=== PATIENT | male | born 1960 | race Caucasian/White ===

== ENCOUNTER 2020-05-26 07:10 | Outpatient (REF) | payer BC, SELFPAY ==
--- NOTE | 2020-05-26 07:25 | MR_ITS ---
EXAMINATION: MR CERVICAL SPINE WITHOUT CONTRAST CLINICAL INFORMATION: Hyperreflexia. COMPARISON: None available. TECHNIQUE: MRI of the cervical spine was performed using routine sequences without contrast. FINDINGS: The cervical vertebral bodies maintain normal heights. There is mild anterolisthesis of C4 on C5 and mild retrolisthesis of C5 on C6. Moderate to severe disc height loss is seen at C5-C6 with edematous endplate changes and prominent anterior osteophyte. There is cord compression at C5-C6 detailed below with intramedullary T2 hyperintensity seen extending from the C4-C5 disc level to the mid C6 level. The cord signal otherwise appears normal. The imaged portions of the intracranial contents appear normal. The extraspinal soft tissues appear normal. SPINAL LEVELS: C2-C3: No posterior disc abnormality or spinal canal stenosis. Severe right and moderate left facet arthropathy. Moderate right more than left neural foraminal stenosis. C3-C4: Mild disc bulging. No spinal canal stenosis. Severe bilateral facet arthropathy. Moderate to severe left and [id number] right neural foraminal stenosis. C4-C5: Disc osteophyte complex with shallow central protrusion. No spinal canal stenosis. Uncovertebral hypertrophy and severe right and moderate left facet arthropathy results in severe right and mild to moderate left neural foraminal stenosis. C5-C6: Broad-based disc osteophyte complex results in severe spinal canal stenosis with cord compression and diffuse intramedullary T2 hyperintensity. Bulging disc extends into the bilateral neural foramina and in combination with uncovertebral hypertrophy and moderate right and mild left facet arthropathy results in severe bilateral neural foraminal stenosis. C6-C7: Broad-based right paracentral/foraminal protrusion results in mild to moderate spinal canal stenosis with flattening of the right ventral cord and moderate right neural foraminal stenosis. Left uncovertebral hypertrophy mildly narrows the left neural foramen. C7-T1: No posterior disc abnormality. Mild facet arthropathy. No spinal canal or neural foraminal stenosis. MR/MR cervical spine wo con IMPRESSION: At C5-C6 there is disc height loss with edematous endplate changes in addition to multifactorial degenerative changes including broad-based disc osteophyte complex causing severe spinal canal stenosis with cord compression. Intramedullary T2 hyperintensity compatible with edema with possible underlying myelomalacia is seen centered at the C5-C6 level. No additional high-grade spinal canal stenosis is seen. Multilevel high-grade neural foraminal stenosis is seen as detailed above.
== END 2020-05-26 07:11 | disposition home or self-care (01) ==
LOC: HO.MRI 07:10
PROVIDERS: PCP Internal Medicine; Visit Provider Psychiatry & Neurology Neurology
DX: R29.2 Abnormal reflex (principal)
CPT/HCPCS: 72141

== ENCOUNTER 2021-07-19 11:12 | Emergency (ER) | payer BC, SELFPAY ==
[2021-07-19 11:41] VITALS: BP 143/77; PULSE 91; RESP 18; TEMP 36.9; O2SAT 99; BMI 35.5
[2021-07-19 14:10] VITALS: BP 179/94; PULSE 79; RESP 16; TEMP 35.3; O2SAT 99
--- NOTE | 2021-07-19 14:15 | ED.DENTAL ---
HPI - Dental/Oral General Chief complaint: Dental/Oral Stated complaint: tooth abscess Time Seen by Provider: 07/19/21 14:13 Source: patient Mode of arrival: ambulatory Limitations: no limitations History of Present Illness HPI Narrative: Complaining of left lower 3rd molar tooth pain, swelling of the left side of the face. Had dental workup and crown fixation on the 2 many years ago, patient otherwise declined any fever or chills, no difficulty breathing, not taking blood thinner, Complaint: tooth pain Related Data Previous Rx's Medication Instructions Recorded clindamycin HCl 300 mg capsule 300 mg PO BID 7 Days #14 cap 07/19/21 Allergies Allergy/AdvReac Type Severity Reaction Status Date / Time Penicillins Allergy Rash Verified 07/19/21 11:40 Review of Systems Review of Systems: All other systems are reviewed and are negative Constitutional: Reports as per HPI and Reports no additional constitutional complaints Eyes: Reports as per HPI and Reports no additional eye complaints Reports system reviewed and no additional complaints, except as documented Cardiovascular: Reports as per HPI and Reports no additional cardiovascular complaints Respiratory: Reports as per HPI and Reports no additional respiratory complaints Gastrointestinal: Reports as per HPI and Reports no additional gastrointestinal complaints Genitourinary: Reports no additional female genitourinary complaints Musculoskeletal: Reports no additional musculoskeletal complaints Skin/Breast: Reports system reviewed and no additional complaints, except as docu Psychiatric: Reports no additional psychiatric complaints Endocrine: Reports no additional endocrine complaints Hematologic/Lymphatic: Reports no additional hematologic/lymphatic complaints Allergic/Immunologic: Reports no additional allergic/immunologic complaints Reports system reviewed and no additional complaints, except as documented and Reports Abnormal speech present [facility] Past Medical History Medical History Diabetes mellitus, type 2 Social History Social History Advance Directives: No Advance Directives Information Provided: No Physical Exam Vital Signs: Vital Signs: Last Vital Signs Temp 95.6 F L 07/19/21 14:10 Pulse 79 07/19/21 14:10 Resp 16 07/19/21 14:10 BP 179/94 H 07/19/21 14:10 Pulse Ox 99 07/19/21 14:10 BMI result Body Mass Index 35.5 Vital signs have been reviewed as appeared to be correct. Blood pressure normal. Heart rate normal. Respiration rate normal. Temperature normal. Oxygen saturation normal. Appearance: Alert. Oriented X3. No acute distress. Head: Normal external exam. Normocephalic. Atraumatic. No Prince signs noted. No raccoon eyes noted Eyes: PERRLA. EOMI. Conjunctiva and sclera normal. Eyelids normal. ENT: TM's Normal. Pharynx normal. Uvula midline. Moist mucous membranes. No trismus noted. No drooling noted. No muffled voice noted. Mouth and teeth exam, left-sided facial swelling, tenderness over tooth number 19, with small fluctuation and tenderness and gum next to the tooth. Neck: Normal inspection. Neck supple. FROM. No adenopathy. Thyroid Normal. No meningeal signs. No neck mass noted. CVS: Normal heart rate and rhythm. Heart sound normal. No murmurs noted. Pulses normal throughout. Respiratory: No respiratory distress. Painless inspiration. Breath sounds normal. No wheezes/rales/rhonchi noted. Chest nontender. No accessory muscle usage noted or decreased air movement noted. Abdomen: Soft and nontender. Bowel sounds normal in all 4 quadrants. No distention noted. No organomegaly noted. No visible injury noted. Back: No CVA tenderness. Full range of motion noted. Skin: Skin warm and dry. Normal skin color. Normal skin turgor. No rashes/lesions/lacerations noted. Extremities: No lower extremity edema. Extremities exhibit normal range of motion. Extremities nontender. Neuro: Oriented X 3. Cranial nerve exam: II-XII are grossly intact No motor deficit. No sensory deficit. Reflexes normal. Course Course Course Narrative: Assessment and plan. Left dental abscess I&D, patient is allergic to penicillins will start the patient on clindamycin. Patient will be discharged and follow up with his dentist, use NSAIDs p.r.n. pain. Procedures Abscess I/D Site: other (Dental abscess, left lower 3rd molar tooth.) Side (if applicable): left Local Anesthetic: lidocaine 1% Amount of anesthesia used (mL): 5 Technique: incised with blade (Size 11) Amount of fluid expressed (mL): 2 Sent for culture/gram staining?: No Irrigation: Yes Packing used?: none Discharge Plan Discharge Clinical Impression: Toothache, Dental abscess, Cellulitis of face Patient Disposition: Home, Self-Care Instructions: Dental Abscess (ED) Additional Instructions: Call your dentist and make an appointment to follow-up with. Prescriptions: New clindamycin HCl 300 mg capsule 300 mg PO BID 7 Days Qty: 14 RF: 0 Referrals: Dustin Mejia MD [Primary Care Provider] - 2 days
[2021-07-19] MEDS: Clindamycin HCL 300 MG CAPSULE PO (14:55)
[2021-07-19] MEDS: Lidocaine HCl 1 % 20 ML VIAL SUBCUT (14:55)
== END 2021-07-19 15:28 | disposition home or self-care (01) ==
PROVIDERS: Emergency Provider Emergency Medicine; PCP Internal Medicine
DX: K04.7 Periapical abscess without sinus (principal); L03.211 Cellulitis of face; E11.9 Type 2 diabetes mellitus without complications; Z88.0 Allergy status to penicillin
CPT/HCPCS: 41800; 99284